=== PATIENT | male | born 1960 | race Caucasian/White ===

== ENCOUNTER 2016-08-01 12:05 | Emergency (ER) | payer BC ==
[2016-08-01 12:37] VITALS: BP 136/56
--- NOTE | 2016-08-01 13:14 | EDM.PDOC ---
ED HPI GENERAL MEDICAL PROBLEM - General Chief Complaint: General Stated Complaint: Fell off Ladder Time Seen by Provider: 08/01/16 12:52 Source of Information: Reports: Patient History Limitations: Reports: No limitations - History of Present Illness INITIAL COMMENTS - FREE TEXT/NARRATIVE: Patient fell off a ladder last night. He did say he landed on his left hip, injured his right wrist when he tried to put his hand out. He also hit his head. No LOC. No complaints today of headache, SOB, chest pain, no unilateral weakness. States right hand fingers are somewhat numb. Full range of motion. 1.5-2 ppd smoker, drinks 3-4 days per week consisting of 6-8 beers. He has no other complaints. Onset Date: 07/31/16 Duration: Intermittent Location: Reports: upper extremity, right, lower extremity, left Quality: Reports: Ache Severity: moderate Improves with: Reports: Medication Treatments [employer]: Reports: NSAIDS Right Wrist Pain Score (Numeric/FACES): 8 - Related Data Allergies Allergy/AdvReac Type Severity Reaction Status Date / Time Iodinated Contrast Media - Allergy Anaphylactic Verified 08/01/16 12:33 Oral and Shock Home Meds: Home Meds . [Unable to Verify Home Med List] 08/01/16 [History] Past Medical History Cardiovascular History: Reports: High cholesterol, Hypertension, [place] Endocrine/Metabolic History: Reports: Diabetes, type II - Infectious Disease History Infectious Disease History: Reports: MRSA - Past Surgical History HEENT Surgical History: Reports: Adenoidectomy, Naso-sinus surgery, Tonsillectomy Cardiovascular Surgical History: Reports: Carotid stents Social & Family History - Tobacco Use Smoking Status *Q: Current Every Day Smoker Years of Tobacco use: 43 Packs/Tins Daily: 2 - Caffeine Use Caffeine Use: Reports: Coffee - Alcohol Use Days Per Week of Alcohol Use: 3 Number of Drinks Per Day: 8 Total Drinks Per Week: 24 - Recreational Drug Use Recreational Drug Use: No ED ROS GENERAL - Review of Systems Review Of Systems: See Below Constitutional: Reports: no symptoms HEENT: Reports: No symptoms Respiratory: Reports: No Symptoms Cardiovascular: Reports: No symptoms Endocrine: Reports: no symptoms GI/Abdominal: Reports: No symptoms : Reports: no symptoms Musculoskeletal: Reports: arm pain (right wrist and left hip pain), leg pain Skin: Reports: no symptoms Neurological: Reports: No Symptoms Psychiatric: Reports: No symptoms Hematologic/Lymphatic: Reports: no symptoms Immunologic: Reports: no symptoms ED EXAM, GENERAL - Physical Exam Exam: See Below Exam Limited By: No limitations General Appearance: alert, WD/WN, no apparent distress Eye Exam: bilateral eye: EOMI, PERRL Head: atraumatic, normocephalic Neck: normal inspection, supple Respiratory/Chest: no respiratory distress, lungs clear, normal breath sounds, no accessory muscle use Cardiovascular: normal peripheral pulses, regular rate, rhythm, no edema GI/Abdominal: normal bowel sounds, soft, non tender, no organomegaly Back Exam: normal inspection Extremities: normal inspection, normal capillary refill, joint swelling, leg pain, limited range of motion Neurological: alert, oriented, CN II-XII intact, normal cognition, normal gait Psychiatric: normal affect, normal mood Skin Exam: Warm, Dry, Intact Lymphatic: no adenopathy Course - Vital Signs Last Recorded V/S: Last Vital Signs Temp 37.2 C 08/01/16 12:36 Pulse 92 08/01/16 12:36 Resp 16 08/01/16 12:36 BP 136/56 L 08/01/16 12:36 Pulse Ox 95 08/01/16 12:36 - Orders/Labs/Meds Orders: Active Orders 24 hr Category Date Time Status Immobilizer [RC] ASDIRECTED Care 08/01/16 13:41 Active Hip Min 2V or 3V w Pelvis Lt [CR] Stat Exams 08/01/16 13:06 Taken Wrist Comp Min 3V Rt [CR] Stat Exams 08/01/16 13:05 Taken Meds: Medications Discontinued Medications Generic Name Dose Route Start Last Admin Trade Name Sanchez PRN Reason Stop Dose Admin Oxycodone/Acetaminophen 1 packet 08/01/16 13:41 Take Home: Acetamin/Oxycodon 325-5 Mg, 5 Pack PO 08/01/16 13:42 ONETIME ONE Departure - Departure Time of Disposition: 13:47 Disposition: Home, Self-Care 01 Condition: good Clinical Impression: Sprain of wrist, right Instructions: Wrist Pain, [id number], Wrist Sprain Referrals: PCP,None [Primary Care Provider] - Forms: ED Department Discharge Additional Instructions: Elevate your arm on pillows. You can also alternate ice and heat to help as well. Keep your hand in the splint as much as tolerated. If your pain continues, please follow up at the clinic No fractures identified Please contact us with any questions or concerns. - Problem List & Annotations (1) Sprain of wrist, right SNOMED Code(s): 16327754 Code(s): S63.501A - UNSPECIFIED SPRAIN OF RIGHT WRIST, INITIAL ENCOUNTER Status: Acute Priority: Low Current Visit: Yes Qualifiers: Encounter type: initial encounter Qualified Code(s): S63.501A - Unspecified sprain of right wrist, initial encounter - Problem List Review Problem List Initiated/Reviewed/Updated: Yes - My Orders Last 24 Hours: My Active Orders 08/01/16 13:05 Wrist Comp Min 3V Rt [CR] Stat 08/01/16 13:06 Hip Min 2V or 3V w Pelvis Lt [CR] Stat 08/01/16 13:41 Immobilizer [RC] ASDIRECTED - Assessment/Plan Last 24 Hours: My Active Orders 08/01/16 13:05 Wrist Comp Min 3V Rt [CR] Stat 08/01/16 13:06 Hip Min 2V or 3V w Pelvis Lt [CR] Stat 08/01/16 13:41 Immobilizer [RC] ASDIRECTED Assessment:: right wrist sprain Plan: Elevate your arm on pillows. You can also alternate ice and heat to help as well. Keep your hand in the splint as much as tolerated. If your pain continues, please follow up at the clinic No fractures identified Please contact us with any questions or concerns.
[2016-08-01] MEDS ORDERED: Take Home: Acetaminophen/oxyCODONE 325-5 MG, 5 Tab Pack PO ONE (13:41)
== END 2016-08-01 13:53 | disposition home or self-care (01) ==
LOC: SUPCPDRO 12:05 → VM.ED 12:05
DX: S63.501A Unspecified sprain of right wrist, initial encounter (principal); E11.9 Type 2 diabetes mellitus without complications; I25.2 Old myocardial infarction; I10 Essential (primary) hypertension; E78.00 Pure hypercholesterolemia, unspecified; F17.210 Nicotine dependence, cigarettes, uncomplicated; W11.XXXA Fall on and from ladder, initial encounter; Z88.8 Allergy status to other drugs, medicaments and biological substances
CPT/HCPCS: 73110; 73502; 99284; A9270

== ENCOUNTER 2016-10-30 03:17 | Emergency (ER) | payer BC ==
--- NOTE | 2016-10-30 04:20 | EDM.PDOC ---
ED HPI GENERAL MEDICAL PROBLEM - General Chief Complaint: Laceration Stated Complaint: ETOH/Laceration Time Seen by Provider: 10/30/16 03:28 Source of Information: Reports: Patient, Family History Limitations: Reports: No Limitations - History of Present Illness INITIAL COMMENTS - FREE TEXT/NARRATIVE: Patient is extremely intoxicated. He fell getting out of the vehicle and lacerated the bridge of his nose. He has 3 large hematomas on his anterior head. He struck a curb [place] his home. He has no neurologic complaints. No weakness. Onset: Today Onset Date: 10/30/16 Onset Time: 03:30 Location: Reports: Face Associated Symptoms: Reports: No Other Symptoms - Related Data Allergies Allergy/AdvReac Type Severity Reaction Status Date / Time Iodinated Contrast- Oral and Allergy Anaphylactic Verified 10/30/16 03:19 IV Dye Shock [Iodinated Contrast Media - Oral and] Home Meds: Home Meds . [Unable to Verify Home Med List] 08/01/16 [History] Past Medical History Cardiovascular History: Reports: High Cholesterol, Hypertension, [place] Endocrine/Metabolic History: Reports: Diabetes, Type II - Infectious Disease History Infectious Disease History: Reports: MRSA - Past Surgical History HEENT Surgical History: Reports: Adenoidectomy, Naso-Sinus Surgery, Tonsillectomy Cardiovascular Surgical History: Reports: Carotid Stents Social & Family History - Tobacco Use Smoking Status *Q: Current Every Day Smoker Years of Tobacco use: 43 Packs/Tins Daily: 2 - Caffeine Use Caffeine Use: Reports: Coffee - Alcohol Use Days Per Week of Alcohol Use: 3 Number of Drinks Per Day: 8 Total Drinks Per Week: 24 - Recreational Drug Use Recreational Drug Use: No ED ROS GENERAL - Review of Systems Review Of Systems: See Below Constitutional: Reports: No Symptoms HEENT: Reports: No Symptoms Respiratory: Reports: No Symptoms Cardiovascular: Reports: No Symptoms Endocrine: Reports: No Symptoms GI/Abdominal: Reports: No Symptoms : Reports: No Symptoms Musculoskeletal: Reports: No Symptoms Skin: Reports: No Symptoms, Wound (wound to nose/forehead), Lumps (lumps to anterior head) Neurological: Reports: No Symptoms Psychiatric: Reports: No Symptoms Hematologic/Lymphatic: Reports: No Symptoms Immunologic: Reports: No Symptoms ED EXAM, SKIN/RASH Exam: See Below Exam Limited By: Intoxication General Appearance: Alert, WD/WN, No Apparent Distress Eye Exam: Bilateral Eye: EOMI Ears: Normal TMs Throat/Mouth: Normal Inspection, Normal Oropharynx Head: Normocephalic Neck: Normal Inspection Respiratory/Chest: No Respiratory Distress, Lungs Clear, Normal Breath Sounds Cardiovascular: Normal Peripheral Pulses, Regular Rate, Rhythm Neurological: Alert, Oriented, Inattentive, Sensory/Motor Deficit (intoxication) Skin: Wound/Incision (3 cm linear lac to the nasal bridge) Lymphatic: No Adenopathy ED SKIN PROCEDURES - Laceration/Wound Repair Left Midline Nose Lac/Wound length In cm: 3 (3 cm linear lac extending to medial eyebrow left side ) Appearance: Linear Distal NVT: Neuro & Vascular Intact, No Tendon Injury Anesthetic Type: Local Local Anesthesia - Lidocaine (Xylocaine): 1% Plain Local Anesthetic Volume: 4cc Skin Prep: Chlorhexidine (Hibiciens) Exploration/Debridement/Repair: Wound Explored, in a Bloodless Field, Explored to Base, No Foreign Material Found Closed with: Sutures Suture Size: other (5) Suture Type: Nylon, Running Drain Placement: No Sterile Dressing Applied: Nurse Tetanus Status Addressed: Yes Complications: No Course - Orders/Labs/Meds Orders: Active Orders 24 hr Category Date Time Status Head wo Cont [CT] Stat Exams 10/30/16 03:29 Ordered Labs: Laboratory Tests 10/30/16 10/30/16 Range/Units 03:35 03:53 Urine Opiates Screen Negative (NEGATIVE) Ur Buprenorphine Scrn Negative (NEGATIVE) Ur Oxycodone Screen Negative (NEGATIVE) Urine Methadone Screen Negative (NEGATIVE) Ur Barbituates Screen Negative (NEGATIVE) Ur Tricyclics Screen Negative (NEGATIVE) Ur Amphetamines Screen Negative (NEGATIVE) U Methamphetamines Scrn Negative (NEGATIVE) Urine MDMA Screen Negative (NEGATIVE) U Benzodiazepines Scrn Negative (NEGATIVE) Urine Cocaine Screen Negative (NEGATIVE) U Marijuana (THC) Screen Negative (NEGATIVE) Ethyl Alcohol 305 H* (0-3) mg/dL Meds: Medications Discontinued Medications Generic Name Dose Route Start Last Admin Trade Name Franciscoq PRN Reason Stop Dose Admin Lidocaine HCl 5 ml 10/30/16 03:30 Xylocaine-Mpf 1% INJECT 10/30/16 03:31 ONETIME ONE Departure - Departure Time of Disposition: 04:31 Disposition: Home, Self-Care 01 Condition: Fair Clinical Impression: Face lacerations - Discharge Information Instructions: Laceration Care, Adult, [id number], Stitches, Clifford, or Adhesive Wound Closure, [id number], Wound Infection, [id number] Forms: ED Department Discharge Additional Instructions: Have sutures removed by your primary provider in 10 days Keep your incision clean and dry. You can shower and wash with soap and water, pat dry Do not go swimming in any lakes, [place], streams, or any other bodies of water until that wound is healed. You can introduce bacteria into the wound Please follow up with your primary provider with any questions or concerns. Please call us with any concerns. - Problem List & Annotations (1) Face lacerations SNOMED Code(s): 897549076 Code(s): S01.81XA - LACERATION W/O FOREIGN BODY OF OTH PART OF HEAD, INIT ENCNTR Status: Acute Priority: Low Qualifiers: Encounter type: initial encounter Qualified Code(s): S01.81XA - Laceration without foreign body of other part of head, initial encounter - Problem List Review Problem List Initiated/Reviewed/Updated: Yes - My Orders Last 24 Hours: My Active Orders 10/30/16 03:29 Head wo Cont [CT] Stat - Assessment/Plan Last 24 Hours: My Active Orders 10/30/16 03:29 Head wo Cont [CT] Stat Assessment:: nasal/forehead laceration Plan: Have sutures removed by your primary provider in 10 days Keep your incision clean and dry. You can shower and wash with soap and water, pat dry Do not go swimming in any lakes, [place], streams, or any other bodies of water until that wound is healed. You can introduce bacteria into the wound Please follow up with your primary provider with any questions or concerns. Please call us with any concerns.
[2016-10-31 05:13] VITALS: BP 142/78
== END 2016-10-30 04:35 | disposition home or self-care (01) ==
LOC: VM.ED 03:17
DX: S01.21XA Laceration without foreign body of nose, initial encounter (principal); E78.00 Pure hypercholesterolemia, unspecified; I25.2 Old myocardial infarction; I10 Essential (primary) hypertension; F17.210 Nicotine dependence, cigarettes, uncomplicated; E11.9 Type 2 diabetes mellitus without complications; Z98.890 Other specified postprocedural states; Z91.041 Radiographic dye allergy status; V89.9XXA Person injured in unspecified vehicle accident, initial encounter
CPT/HCPCS: 12013; 36415; 70450; 80305; 99283; G0480

== ENCOUNTER 2021-06-26 06:23 | Day surgery (SDC) | payer BC, OTHER ==
[~2021-06-26 06:23] MED LIST: Lactated Ringers 1,000 ML IV SCH
[2021-06-26] MEDS ORDERED: Propofol 200 MG/20 ML SDV ONE ×2 (07:51→08:04)
[2021-06-26] MEDS ORDERED: fentaNYL 100 MCG/2 ML SDV ONE (07:51)
[2021-06-26 08:49] VITALS: BP 115/67; PULSE 50
== END 2021-06-26 09:45 | disposition home or self-care (01) ==
LOC: VM.SDS 06:23
PROVIDERS: ATTEND Student in an Organized Health Care Education/Training Program
DX: Z12.11 Encounter for screening for malignant neoplasm of colon (principal); K62.1 Rectal polyp; I10 Essential (primary) hypertension; I25.10 Atherosclerotic heart disease of native coronary artery without angina pectoris; G47.33 Obstructive sleep apnea (adult) (pediatric); E11.9 Type 2 diabetes mellitus without complications; F32.A Depression, unspecified; F17.210 Nicotine dependence, cigarettes, uncomplicated; E78.2 Mixed hyperlipidemia; M47.816 Spondylosis without myelopathy or radiculopathy, lumbar region; Z79.899 Other long term (current) drug therapy; Z79.84 Long term (current) use of oral hypoglycemic drugs; Z91.041 Radiographic dye allergy status; Z88.8 Allergy status to other drugs, medicaments and biological substances
CPT/HCPCS: 00811; 82947; J2704; J3010; J7120

== ENCOUNTER 2024-04-15 11:01 | Emergency (ER) | payer OTHER ==
[2024-04-15] MEDS: Ketorolac 30 MG/ML SDV IM ONE (11:35)
[2024-04-15 12:46] VITALS: BP 147/77; PULSE 62
== END 2024-04-15 12:05 | disposition home or self-care (01) ==
LOC: VM.ED 11:01
DX: M25.511 Pain in right shoulder (principal); I10 Essential (primary) hypertension; I25.2 Old myocardial infarction; E11.9 Type 2 diabetes mellitus without complications; Z79.82 Long term (current) use of aspirin; Z79.4 Long term (current) use of insulin; Z79.84 Long term (current) use of oral hypoglycemic drugs; Z79.1 Long term (current) use of non-steroidal anti-inflammatories (NSAID); Z79.85 Long-term (current) use of injectable non-insulin antidiabetic drugs; Z79.899 Other long term (current) drug therapy; Z88.8 Allergy status to other drugs, medicaments and biological substances; Z91.041 Radiographic dye allergy status; Z88.0 Allergy status to penicillin; W19.XXXA Unspecified fall, initial encounter; Y92.009 Unspecified place in unspecified non-institutional (private) residence as the place of occurrence of the external cause
CPT/HCPCS: 73030-RT; 96372; 99283; J1885